=== PATIENT | male | born 1950 | race Two or more races ===

== ENCOUNTER 2020-09-25 13:59 | Emergency (ER) | payer OTHER ==
[~2020-09-25] VITALS: Ht 177.8 cm; Wt 83.9 kg
== END 2020-09-25 18:21 | disposition home or self-care (01) ==
LOC: ER 13:59
DX: S20.221A Contusion of right back wall of thorax, initial encounter (principal); W18.39XA Other fall on same level, initial encounter; Y93.01 Activity, walking, marching and hiking; Y92.414 Local residential or business street as the place of occurrence of the external cause; Y99.8 Other external cause status

== ENCOUNTER 2021-01-26 17:41 | Emergency (ER) | payer OTHER ==
[~2021-01-26] VITALS: Ht 170.2 cm; Wt 78.5 kg
[2021-01-26] MEDS ORDERED: DICLOFENAC SODI75 MG PO (19:28)
[2021-01-26] MEDS ORDERED: NORFLEX100MG PO (19:28)
== END 2021-01-26 20:31 | disposition home or self-care (01) ==
LOC: ER 17:41
DX: M54.5 Low back pain (principal)

== ENCOUNTER 2021-07-18 16:11 | Emergency (ER) | payer OTHER ==
[~2021-07-18] VITALS: Ht 172.7 cm; Wt 77.1 kg
[~2021-07-18 16:11] MED LIST: DICLOFENAC SODI75 MG PO; NORFLEX100MG PO
== END 2021-07-18 18:02 | disposition home or self-care (01) ==
LOC: ER 16:11
DX: M54.50 Low back pain, unspecified (principal)

== ENCOUNTER 2021-08-01 17:16 | Outpatient (CLI) | payer OTHER | END 2021-08-01 17:27 | disposition home or self-care (01) | LOC: RAD 17:16 | PROVIDERS: ATTEND Physical Medicine & Rehabilitation | DX: M79.642 Pain in left hand (principal) ==

== ENCOUNTER 2022-08-30 12:53 | Emergency (ER) | payer OTHER ==
[~2022-08-30] VITALS: Ht 172.7 cm; Wt 72.6 kg
== END 2022-08-30 15:58 | disposition home or self-care (01) ==
LOC: ER 12:53
DX: M54.59 Other low back pain (principal)

== ENCOUNTER 2024-03-13 07:34 | Emergency (ER) | payer OTHER ==
[~2024-03-13] VITALS: Ht 172.7 cm; Wt 78.0 kg
[2024-03-13] MEDS ORDERED: KETOROLAC TROMETHAMINE 60 MG VIAL IM STA (09:06)
== END 2024-03-13 11:12 | disposition home or self-care (01) ==
LOC: ER 07:34
DX: S83.92XA Sprain of unspecified site of left knee, initial encounter (principal); W18.39XA Other fall on same level, initial encounter; Y93.89 Activity, other specified; Y92.89 Other specified places as the place of occurrence of the external cause; Y99.9 Unspecified external cause status; M17.12 Unilateral primary osteoarthritis, left knee